=== PATIENT | male | born 1955 | race Caucasian/White ===

== ENCOUNTER 2024-12-13 09:07 | Emergency (ER) | payer MEDICARE, SELFPAY ==
[2024-12-13 09:16] VITALS: BP 157/88; PULSE 79; RESP 18; TEMP 36.8; O2SAT 98; BMI 30.1
--- NOTE | 2024-12-13 09:33 | XR_ITS ---
EXAMINATION: Ankle, left 3 views . Technique: Ankle AP, oblique, lateral 3 views Date and time of exam: December 13, 2024 0838 hours INDICATIONS: Patient fell today with injury to the ankle, ankle pain. FINDINGS: Minimal displacement fracture distal fibular shaft Comminuted fractures medial malleolus with 6 mm separation at the main fracture site Posterior malleolar fracture minimal offset No ankle dislocation IMPRESSION: Acute trimalleolar fractures
--- NOTE | 2024-12-13 09:33 | XR_ITS ---
Examination: Foot, left, 3 views Technique: AP, oblique, lateral views foot, 3 views Date and time of exam: December 13, 2024 at 0838 hours INDICATIONS: Patient fell today with injury to foot, foot pain FINDINGS: Please see the ankle report Bones of the foot appear intact IMPRESSION: Please see the ankle report
[2024-12-13] MEDS: HYDROcodone/APAP 5/325 TABLET 1 TAB PO (09:47)
[2024-12-13] MEDS: IBUPROFEN TAB 400 MG TABLET 800 MG PO (09:47)
--- NOTE | 2024-12-13 09:49 | PD.EDRME ---
Rapid Medical Screening Exam E Arrival date/time: 12/13/24 09:07 69-year-old male presents to the emergency department today for complaints of fall while mowing the lawn patient has significant swelling left ankle Chief Complaint: Fall Vital signs: Vital Signs Temperature 98.2 F 12/13/24 09:16 Pulse Rate 79 12/13/24 09:16 Respiratory Rate 18 12/13/24 09:16 Blood Pressure 157/88 H 12/13/24 09:16 Pulse Oximetry (%) 98 12/13/24 09:16 Oxygen Delivery Method Room Air 12/13/24 09:16
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
[2024-12-13 10:36] VITALS: BP 189/88; PULSE 72; RESP 16; TEMP 36.8; O2SAT 97
--- NOTE | 2024-12-13 11:05 | PC.NURSE ---
PATIENT PRESENTS TO THE ER WITH LEFT ANKLE INJURY / PAIN AFTER FALLING OFF 4 STAIRS YESTERDAY. ANKLE XRAY TODAY INDICATES TRIMALLEOLAR FRACTURE. STATES CURRENT PAIN 04/05. ER PROVIDER INFORMED.
[2024-12-13 12:01] VITALS: BP 163/80; PULSE 75; RESP 19; TEMP 36.6; O2SAT 96
[2024-12-13] MEDS: MORPHINE SULF INJ 10 MG/ML VIAL 5 MG IVP ×2 (12:08→15:05)
[2024-12-13] MEDS: ONDANSETRON INJ 2 MG/ML INJ 2 ML 4 MG IV (12:08)
[2024-12-13 13:59] VITALS: BP 147/84; PULSE 71; RESP 15; TEMP 36.9; O2SAT 96
== END 2024-12-13 14:00 | disposition home or self-care (01) ==
PROVIDERS: Emergency Provider Family Medicine; PCP Family Medicine
DX: S82.852A Displaced trimalleolar fracture of left lower leg, initial encounter for closed fracture (principal); W01.0XXA Fall on same level from slipping, tripping and stumbling without subsequent striking against object, initial encounter; Z95.5 Presence of coronary angioplasty implant and graft; I10 Essential (primary) hypertension
CPT/HCPCS: 29515; 73610; 73630; 96374; 96375; 99284; J2270; J2405; A9270

== ENCOUNTER → 2025-02-22 | Outpatient (CLI) | payer MEDICARE, MEDICAID, SELFPAY ==
--- NOTE | 2025-02-22 09:53 | XR_ITS ---
EXAMINATION: Ankle, right 3 views . Technique: Ankle AP, oblique, lateral 3 views Date and time of exam: February 22, 2025 1005 hours Comparison December 13, 2024 INDICATIONS: Acute fractures medial malleolus distal fibular shaft postop reduction internal fixation FINDINGS: Operative reduction internal fixation fractures medial malleolus and distal fibular shaft Significant healing fracture distal fibular shaft with stable satisfactory alignment Fracture line is still visible at the medial malleolus IMPRESSION: Recommend continued follow-up to document more complete healing fracture medial malleolus
== END | disposition home or self-care (01) ==
PROVIDERS: Referring Provider Orthopaedic Surgery; Visit Provider Orthopaedic Surgery
DX: S82.852D Displaced trimalleolar fracture of left lower leg, subsequent encounter for closed fracture with routine healing (principal); X58.XXXD Exposure to other specified factors, subsequent encounter
CPT/HCPCS: 73610

== ENCOUNTER → 2025-03-15 | Outpatient (BNVA) | payer MEDICARE, MEDICAID, SELFPAY | END | disposition home or self-care (01) | PROVIDERS: PCP Family Medicine; Referring Provider Family Medicine; Visit Provider Urology | DX: N40.1 Benign prostatic hyperplasia with lower urinary tract symptoms (principal); N13.8 Other obstructive and reflux uropathy; R39.15 Urgency of urination; I10 Essential (primary) hypertension; I25.10 Atherosclerotic heart disease of native coronary artery without angina pectoris; F17.210 Nicotine dependence, cigarettes, uncomplicated; J44.9 Chronic obstructive pulmonary disease, unspecified; K21.9 Gastro-esophageal reflux disease without esophagitis | CPT/HCPCS: 81003; 99212; G0463 ==

== ENCOUNTER → 2025-04-17 | Outpatient (CLI) | payer MEDICARE, MEDICAID, SELFPAY ==
--- NOTE | 2025-04-17 08:43 | XR_ITS ---
EXAMINATION: Ankle, left 3 views . Technique: Ankle AP, oblique, lateral 3 views Date and time of exam: April 17, 2025 0906 hours INDICATIONS: History ankle fracture 3 months ago FINDINGS: Significant healing fracture distal fibular shaft with stable and satisfactory alignment compared with February 22, 2025 Fracture line is still evident at the medial malleolus No ankle dislocation IMPRESSION: Recommend continued follow-up to document more complete healing of medial malleolar fracture
== END | disposition home or self-care (01) ==
PROVIDERS: PCP Family Medicine; Referring Provider Orthopaedic Surgery; Visit Provider Orthopaedic Surgery
DX: S82.52XA Displaced fracture of medial malleolus of left tibia, initial encounter for closed fracture (principal)
CPT/HCPCS: 73610

== ENCOUNTER → 2025-04-19 | Outpatient (BNVA) | payer MEDICARE, MEDICAID, SELFPAY | END | disposition home or self-care (01) | PROVIDERS: PCP Family Medicine; Referring Provider Family Medicine; Visit Provider Urology | DX: N40.1 Benign prostatic hyperplasia with lower urinary tract symptoms (principal); R39.12 Poor urinary stream; F17.210 Nicotine dependence, cigarettes, uncomplicated; I10 Essential (primary) hypertension; E78.00 Pure hypercholesterolemia, unspecified; I25.10 Atherosclerotic heart disease of native coronary artery without angina pectoris; J44.9 Chronic obstructive pulmonary disease, unspecified; K21.9 Gastro-esophageal reflux disease without esophagitis | CPT/HCPCS: 51741; 51798 ==

== ENCOUNTER → 2025-05-04 | Outpatient (BNVA) | payer MEDICARE, MEDICAID, SELFPAY | END | disposition home or self-care (01) | PROVIDERS: PCP Family Medicine; Referring Provider Family Medicine; Visit Provider Urology | DX: N40.1 Benign prostatic hyperplasia with lower urinary tract symptoms (principal); N13.8 Other obstructive and reflux uropathy; I10 Essential (primary) hypertension; E78.00 Pure hypercholesterolemia, unspecified; I25.10 Atherosclerotic heart disease of native coronary artery without angina pectoris; J44.9 Chronic obstructive pulmonary disease, unspecified; F17.210 Nicotine dependence, cigarettes, uncomplicated | CPT/HCPCS: 76872 ==

== ENCOUNTER 2025-06-05 16:10 | Inpatient (IN) | payer MEDICARE, MEDICAID, SELFPAY ==
[2025-06-05] VITALS (16 sets, daily range): BP systolic 143–198; BP diastolic 86–109; PULSE 80–112; RESP 10–18; TEMP 36.5–36.8; O2SAT 96–100; BMI 29.6
--- NOTE | 2025-06-05 16:30 | PD.EDADULT ---
ED General RME/HPI General Chief complaint: General Adult/Misc Complain Stated complaint: ADMIT FOR ESOPHAGEAL DILATION Time Seen by Provider: 06/05/25 16:22 Source: patient Arrival date/time: 06/05/25 16:10 69-year-old male with no known medical history presents to the emergency room with a chief complaint of a foreign body in the esophagus. Patient states he was sent by Dr. Haro for an EGD tomorrow morning. Mode of arrival: ambulatory Limitations: no limitations Related Data Home Medications ?Medication ?Instructions ?Recorded ?Confirmed clopidogrel 75 mg tablet 75 mg PO DAILY 05/09/21 05/04/25 tamsulosin 0.4 mg capsule 0.4 mg PO QHS 03/15/25 05/04/25 Previous Rx's ?Medication ?Instructions ?Recorded famotidine 20 mg tablet 20 mg PO BID #90 tabs 08/31/23 metoclopramide HCl 5 mg tablet 5 mg PO BID #90 tabs 08/31/23 (Reglan) pantoprazole 40 mg granules 40 mg PO BID #90 ea 08/31/23 delayed-release for susp in packet (Protonix) hydrocodone 10 mg-acetaminophen 1 tab PO Q8H PRN pain #20 tabs 12/13/24 325 mg tablet Allergies Allergy/AdvReac Type Severity Reaction Status Date / Time lisinopril AdvReac Intermediate Gastrointestinal Verified 06/05/25 16:14 Upset Review of Systems Review of Systems Systems Reviewed: All systems reviewed, normal except as documented Constitutional Constitutional: Reports system reviewed and no additional complaints, except as documented, Denies fatigue, Denies fever(s), Denies headache(s) and Denies weakness Eyes Eyes: Reports system reviewed and no additional complaints, except as documented, Denies blurry vision and Denies change in vision ENT Ears, Nose, Mouth, and Throat: Reports system reviewed and no additional complaints, except as documented, Denies otalgia, Denies headache(s), Denies nasal congestion, Denies throat swelling and Denies vertigo Cardiovascular Cardiovascular: Reports system reviewed and no additional complaints, except as documented, Denies chest pain, Denies dyspnea and Denies dyspnea on exertion Respiratory Respiratory: Reports system reviewed and no additional complaints, except as documented, Denies chest congestion, Denies cough, Denies dyspnea, Denies dyspnea on exertion and Denies wheezing Gastrointestinal Gastrointestinal: Reports system reviewed and no additional complaints, except as documented, Denies abdominal pain, Denies cramping, Denies nausea and Denies vomiting Genitourinary Genitourinary: Reports system reviewed and no additional complaints, except as documented, Denies dysuria and Denies hematuria Musculoskeletal Musculoskeletal: Reports system reviewed and no additional complaints, except as documented and Denies back pain Integumentary/Breasts Skin/Breast: Reports system reviewed and no additional complaints, except as documented and Denies wounds Neurologic Neurologic: Reports system reviewed and no additional complaints, except as documented, Denies confusion, Denies headache(s), Denies lack of coordination, Denies vertigo and Denies weakness Psychiatric Psychiatric: Reports system reviewed and no additional complaints, except as documented, Denies anxiety, Denies confusion, Denies depression, Denies paranoia, Denies suicidal ideation and Denies tactile hallucinations Endocrine Endocrine: Reports system reviewed and no additional complaints, except as documented and Denies fatigue Hematologic/Lymphatic Hematologic/Lymphatic: Reports system reviewed and no additional complaints, except as documented and Denies lymphadenopathy Allergic/Immunologic Allergic/Immunologic: Reports system reviewed and no additional complaints, except as documented, Denies throat swelling, Denies urticaria and Denies wheezing ED Exam General Limitations: Present no limitations General appearance: Present alert and in no apparent distress Head Head exam: Present atraumatic Eye Eye exam: Present normal appearance, PERRL and EOMI ENT ENT exam: Present normal exam, normal oropharynx and mucous membranes moist Neck Neck exam: Present normal inspection, full ROM and trachea midline Chest Chest inspection: Present normal inspection and symmetric chest wall rise Respiratory Respiratory exam: Present normal lung sounds bilaterally Cardiovascular Cardiovascular exam: Present regular rate, normal rhythm and normal heart sounds Abdominal Exam Abdominal exam: Present soft and normal bowel sounds Extremities Exam Extremities exam: Present normal inspection and full ROM Back Exam Back exam: Present normal inspection and full ROM Neurological Exam Neurological exam: Present alert, oriented X3 and CN II-XII intact Psychiatric Psychiatric exam: Present normal affect and normal mood Skin Skin exam: Present warm, dry, intact and normal color Course Quality Measures none Orders Category Date Time Status COVID-19 Screening Questionnaire NOW Care 06/05/25 16:29 Active Decision to Admit X1 Care 06/05/25 16:29 Active NPO NOW Care 06/05/25 16:29 Active Consult to Gastroenterology Stat Cons 06/05/25 16:29 Ordered Diet NPO (NOW) Diet 06/05/25 16:29 Active CBC Stat Lab 06/05/25 16:29 Ordered CMP [Comprehensive Metabolic Panel] Stat Lab 06/05/25 16:29 Ordered Vital Signs Vital signs: Vital Signs Temperature 98.1 F 06/05/25 16:22 Pulse Rate 99 06/05/25 16:22 Respiratory Rate 16 06/05/25 16:22 Blood Pressure 143/89 H 06/05/25 16:22 Pulse Oximetry (%) 96 06/05/25 16:22 Oxygen Delivery Method Room Air 06/05/25 16:22 Discharge Plan Plan Patient Disposition: Admit Acute Care w/in Hospital Discharge Disposition comment: Stable Prescriptions/Referrals Prescriptions/Med Rec: No Action tamsulosin 0.4 mg capsule 0.4 mg PO QHS clopidogrel 75 mg tablet 75 mg PO DAILY pantoprazole [Protonix] [address] For Susp In Packet 40 mg PO BID Qty: 90 0RF famotidine 20 mg Tablet 20 mg PO BID Qty: 90 0RF metoclopramide HCl [Reglan] 5 mg Tablet 5 mg PO BID Qty: 90 0RF hydrocodone-acetaminophen 10-325 mg tablet 1 tab PO Q8H MDD 4 tablets PRN (Reason: pain) Qty: 20 0RF Problem List Clinical Impression: Esophageal foreign body Patient/Caregiver Discharge Instructions Print Language: Haitian Stand Alone Forms: [employer] Award Info., Patient Portal Info Letter MDM Narrative MDM hospital course: 69-year-old male with no known medical history presents to the emergency room with a chief complaint of a foreign body in the esophagus. Patient states he was sent by Dr. Haro for an EGD tomorrow morning. Patient is hemodynamically stable and in no apparent distress. Patient denies any respiratory distress. Patient has no shortness of breath Lung sounds are clear bilaterally there is no wheezing or stridor. There is no tongue swelling or lip swelling I spoke to Dr. Haro the composer teaching artist on-call and he will admit the patient for an EGD tomorrow to remove the foreign body in the esophagus. Per patient the foreign body that is stuck in his esophagus is a piece of meat I spoke to the admitting team and they will admit the patient for an EGD tomorrow. Clinical Information Provided by patient Medical Records Reviewed None Meds/Rx Considered, not Ordered None Labs/Rad/Tests considered, not Ordered None Chronic Illness/Social Conditions which may negatively complicate care or outcome(s)-explain: None or not applicable EKG EKG not done Lab Interpretation Labs: none Imaging Imaging interpretation: none Medication Administration(s) none Diagnosis Differential diagnosis: Esophageal foreign body Most likely dx, and/or detailed dx discussion: Esophageal foreign body Dispositon Disposition: Admit
[2025-06-05 16:58] LABS: Basophils # (Auto) 0.1 Thou/mm3 (0.0-0.2); Basophils % (Auto) 1 % (0-2.5); Eosinophils # (Auto) 0.1 Thou/mm3 (0.0-0.5); Eosinophils % (Auto) 2 % (0-10); Hematocrit 47.4 % (41.0-53.0); Hemoglobin 15.2 g/dL (13.5-16.0); Immature Granulocytes Auto 0.01 Thou/mm3 (0.00-0.00); Lymphocytes # (Auto) 1.2 Thou/mm3 (1.0-4.8); Lymphocytes % (Auto) 20 % (10-50); Mean Corpuscular HGB Conc 32.1 g/dl (31.0-37.0); Mean Corpuscular Hemoglobin 27.3 pg (25.0-35.0); Mean Corpuscular Volume 85 fL (80-100); Monocytes # (Auto) 0.6 Thou/mm3 (0.0-0.8); Monocytes % (Auto) 11 % (0-12); Neutrophils # (Auto) 4.0 Thou/mm3 (1.8-7.7); Neutrophils % (Auto) 66 % (37-80); Nucleated Red Blood Cell # 0.00 Thou/mm3 (0.00-0.00); Nucleated Red Blood Cell % 0 /100 WBC (0); Platelet Count 241 Thou/mm3 (140-440); RDW Standard Deviation 45.3 fL (35.1-43.9); Red Blood Count 5.56 Miln/mm3 (4.50-5.90); White Blood Count 6.1 Thou/mm3 (3.8-10.6)
--- NOTE | 2025-06-05 16:59 | XR_ITS ---
Examination: AP chest single view Technique: AP sitting portable chest single view Date and time: June 05, 2025, 1714 hrs. Indications: Patient swallowed foreign body glass likely chest pain. Findings: Median sternotomy wires. Mild prominence left ventricle. Poor definition of cardiac contour. No opaque foreign body. Aortic valve replacement satisfactory position Impression: No opaque foreign body. Recommend lateral chest view follow-up to assess and exclude possible parenchymal disease in the lingular segment
--- NOTE | 2025-06-05 17:06 | PD.RESHP ---
Documentation for date of: 06/05/25 [facility] History of Present Illness Chief complaint: Dysphagia History of present illness: 69-year-old male with past medical history of coronary artery disease, valvular heart disease status post CABG, hypertension, esophageal stricture and ulceration, BPH, skin cancer presenting to the ED on 06/05 after he started experiencing worsening dysphagia and has a piece of chicken stuck in his esophagus. Patient states that he was going out to dinner with his yesterday and had chicken; however, unfortunately the chicken has been stuck in his throat and he has not been able to eat or drink anything since the incident. Patient states that he regurgitates anything that he tries to swallow. Dysphagia has been ongoing for several years, patient states 6 to 7 years, and has had multiple dilations via endoscopy in the past. 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 Patient has extensive cardiac history and follows up with rod greaser Dr. Blakely in [place]. Medical history: As stated above Surgical history: CABG, left foot surgery and cataract removal, skin cancer biopsies and excision Allergies: Lisinopril causes gastrointestinal issues Home medications: Pending med rec Family history: Noncontributory Social history: Patient lives at home with his , able to do his ADLs, greater than [id number] history, denies alcohol or illicit drug use ROS: All 12 systems assessed and the patient denies unless otherwise stated in HPI. Patient was sent to the ED by Dr. Haro, gastroenterology was already excepted the patient for endoscopy. No laboratory or imaging studies were completed in the ED prior to admission. Patient will be admitted for dysphagia secondary to foreign object ingestion and retention with scheduled endoscopy for removal of foreign object and possible dilation. Exam Vital Signs Temp Pulse Resp BP Pulse Ox O2 Del Method 98.1 F 99 16 143/89 H 96 Room Air 06/05/25 16:22 06/05/25 16:22 06/05/25 16:22 06/05/25 16:22 06/05/25 16:22 06/05/25 16:22 Narrative Exam Physical Exam: GENERAL: Awake, answering questions appropriately, appears stated age HEENT: NC/AT. Moist mucosa. PERRLA/EOMI. CARDIO: Heart RRR, no obvious murmurs, no JVD. PULM: No coughing or visible SOB. Lungs CTA B/L. GI: Abdomen soft, NT/ND, +BS. SKIN/MSK/EXT: No wounds/discoloration/rashes/edema/amputations. +Pedal pulses present B/L. NEURO: Oriented x3, Moves extremities x4, no focal neurologic deficits noted. Results: Labs 06/05/25 16:37 06/05/25 16:37 Quality Measures Quality Measures none Advance care planning discussed with:: patient Medications Home Medications and Allergies Home Medications ?Medication ?Instructions ?Recorded ?Confirmed ?Type clopidogrel 75 mg tablet 75 mg PO DAILY 05/09/21 05/04/25 History tamsulosin 0.4 mg capsule 0.4 mg PO QHS 03/15/25 05/04/25 History Allergies Allergy/AdvReac Type Severity Reaction Status Date / Time lisinopril AdvReac Intermediate Gastrointestinal Verified 06/05/25 16:14 Upset Visit Medications Acetaminophen (Acetaminophen 325 Mg Tablet) 650 mg PO Q6H PRN PRN Reason: PAIN SCALE 1-3 (mild Stop: 07/05/25 16:59 Aspirin (Aspirin Ec 81 Mg Tabec) 81 mg PO QDAY [facility] Stop: 07/06/25 08:59 Carvedilol (Carvedilol 3.125 Mg Tablet) 6.25 mg PO BIDWM SAMRA Stop: 07/05/25 17:29 Clopidogrel Bisulfate (Clopidogrel Bisulfate 75 Mg Tablet) 75 mg PO QDAY SAMRA Stop: 07/06/25 08:59 Heparin Sodium (Porcine) (Heparin Sod Inj 5000 Unit/Ml Vial) 5,000 unit SC Q12HR SAMRA Stop: 06/19/25 20:59 Ondansetron HCl (Ondansetron Inj 2 Mg/Ml Inj 2 Ml) 4 mg IVP Q6H PRN; Protocol PRN Reason: NAUSEA OR VOMITING Stop: 07/05/25 16:59 Assessment & Plan Plan 69-year-old male with past medical history of coronary artery disease, valvular heart disease status post CABG, hypertension, esophageal stricture and ulceration, BPH, skin cancer presenting to the ED on 06/05 after he started experiencing worsening dysphagia and has a piece of chicken stuck in his esophagus will be admitted for dysphagia secondary to foreign object ingestion and retention with scheduled endoscopy for removal of foreign object and possible dilation. #Dysphagia #Foreign body in esophagus #Esophageal stricture and ulceration As noted in HPI, patient had an episode of dysphagia, ongoing medical problem for about 7 years had multiple dilations Per HPI, patient had a piece of chicken yesterday which got stuck in his throat - sent to ED by gastroenterology for EGD On examination, patient denies having any concerning symptoms such as shortness of breath but states that he gets regurgitation with any type of congestion/swallowing No pertinent imaging or laboratory results ordered in the ED Plan: GI consulted, appreciate recommendations Tentatively scheduled EGD N.p.o. Chest x-ray ordered for possible visualization of any other etiology #Coronary artery disease status post CABG #Aortic valve disease status post valve replacement #Hypertension Patient has extensive past medical history of cardiac issues; follows up with Dr. Blakely cardiology in [place] Patient had CABG for coronary artery disease along with aortic valve insufficiency/stenosis? Patient is on Plavix and aspirin along with statin and carvedilol Plan: Ordered troponin and BNP to assess for any cardiac etiology of chest discomfort Restarted home medications #BPH Chronic medical condition Patient on home tamsulosin 0.4 mg p.o. at bedtime Plan: Restart home medication #Skin cancer Per who is at bedside, patient has been seeing a wet primer powder blender for skin cancer findings on anterior chest wall Patient has an appointment on 06/12 for biopsy/excision Plan: Follow-up with dermatology appointment once discharged Health Maintenance: Lines: PIV Diet: N.p.o. pending EGD Bowel: Not needed GI prophylaxis: Not needed DVT prophylaxis: Heparin subcu Dispo: EGD for foreign object removal, dilation Code: Full Patient seen and assessed with attending Dr. Jay Michael DO PGY-2 Internal Medicine - GME Attending Provider Attestation/Addendum I attest that I was physically present for the evaluation, physical examination, lab and imaging review of the patient with the residents. I discussed the case with the residents and agree with the findings and plans of care as documented above. After examination of the patient and review of the clinical data I feel that this patient needs admission to the hospital for further treatment/evaluation. Patient is a 69 years old male with past medical history of CAD, valvular heart disease status post CABG, hypertension, esophageal stricture and ulceration, BPH, skin cancer who presented to the ED with complaint of piece of chicken stuck in his esophagus. Patient has been having dysphagia for past 6 to 7 years with multiple endoscopies and dilation. He follows gastroenterology outpatient. Patient went out to dinner with his yesterday and had chicken which got stuck in his throat following which he has not been able to eat or drink anything, whenever he tries he will have regurgitation. Patient visited his receiving inspector today, who recommended visiting to the ED. In the ED, vital signs are stable, patient does not appear to be in no acute distress, states that he has discomfort on his chest but denies any other symptoms. Lab results are stable. We will admit the patient for management of possible foreign body in esophagus, dysphagia in setting of history of esophageal stricture and ulceration. We will keep him n.p.o., gastroenterology has been consulted by ED. We will also obtain chest x-ray troponin and BNP to rule out any other causes of chest discomfort. We will continue his home medication for CAD, BPH. Mouna Thompson MD
[2025-06-05 17:11] LABS: Alanine Aminotransferase 15 U/L (10-49); Albumin, Serum 4.5 gm/dL (3.4-4.8); Albumin/Globulin Ratio 1.7 (1.2-2.2); Alkaline Phosphatase 84 U/L (46-116); Anion Gap 13 (7-16); Aspartate Amino Transferase 20 U/L (0-34); BUN/Creatinine Ratio 6 Ratio (12-20); Bilirubin,Total 0.5 mg/dL (0.3-1.2); Blood Urea Nitrogen 6 mg/dL (9-23); Calcium 9.8 mg/dL (8.3-10.6); Calcium (Corrected) 9.8 mg/dL (8.5-10.1); Carbon Dioxide 25.6 mMol/L (20.0-31.0); Chloride 104 mMol/L (98-107); Creatinine (Component) 1.0 mg/dL (0.6-1.3); Estimated Creatinine Clearance 77.6 mL/min (>60); Globulin 2.7 gm/dL (2.3-3.5); Glucose 88 mg/dL (74-106); Osmolality,Calculated 281 (275-295); Potassium 4.2 mMol/L (3.4-5.1); Sodium 143 mMol/L (136-145); Total Protein 7.2 gm/dL (5.7-8.2); eGFR > 60 See Note
[2025-06-05 17:49] LABS: B-Type Natriuretic Peptide 29 pg/mL (0-100)
[2025-06-05 18:48] LABS: Troponin I < 0.020 ng/mL (0.0-0.045)
--- NOTE | 2025-06-05 22:01 | PD.IMCONS ---
HPI Data of Consult Requesting Physician: Mouna Thompson MD Primary Care Provider: Kennedy Kelly MD Consult Narrative Reason for consult: Dysphagia foreign body obstruction esophagus History of present illness: 69 years old male was sent to the emergency room when I saw him in the office for dysphagia and a piece of foreign body stuck in the esophagus after a chicken dinner last night Patient has been spitting up saliva He has a history of coronary artery status post CABG valvular heart disease esophageal ulcer n.p.o. with endoscopic dilatation cc:: cc: Mouna Thompson MD Review of Systems Review of Systems Systems Reviewed: All systems reviewed, normal except as documented Past Medical History Surgical History OTHER SURGICAL HX: As in the history of present illness Meds Home Medications and Allergies Home Medications ?Medication ?Instructions ?Recorded ?Confirmed ?Type clopidogrel 75 mg tablet 75 mg PO DAILY 05/09/21 05/04/25 History tamsulosin 0.4 mg capsule 0.4 mg PO QHS 03/15/25 05/04/25 History Allergies Allergy/AdvReac Type Severity Reaction Status Date / Time lisinopril AdvReac Intermediate Gastrointestinal Verified 06/05/25 16:14 Upset Exam Vital Signs Temp Pulse Resp BP Pulse Ox O2 Del Method O2 Flow Rate 98.2 F 93 18 161/92 H 96 Room Air 3 06/05/25 18:43 06/05/25 21:56 06/05/25 21:56 06/05/25 21:56 06/05/25 21:56 06/05/25 18:43 06/05/25 21:45 Constitutional Comments: In distress Routine Respiratory Exam Comments: Normal to auscultation Routine Abdominal Exam Comments: Soft nontender Results Labs 06/05/25 16:37 06/05/25 16:37 Labs: Short CBC 06/05/25 Range/Units 16:37 WBC 6.1 (3.8-10.6) Thou/mm3 Hgb 15.2 (13.5-16.0) g/dL Hct 47.4 (41.0-53.0) % Plt Count 241 (140-440) Thou/mm3 BMP 06/05/25 16:37 Sodium 143 Potassium 4.2 Chloride 104 Carbon Dioxide 25.6 BUN 6 L Creatinine 1.0 Glucose 88 Calcium 9.8 Cardiac Enzymes 06/05/25 Range/Units 16:37 Troponin I < 0.020 (0.0-0.045) ng/mL Liver Function 06/05/25 Range/Units 16:37 Total Bilirubin 0.5 (0.3-1.2) mg/dL AST 20 (0-34) U/L ALT 15 (10-49) U/L Alkaline Phosphatase 84 (46-116) U/L Albumin 4.5 (3.4-4.8) gm/dL Assessment and Plan Additional Assessment & Plan Additional Plan: Foreign body obstruction esophagus Plan Consent obtained for fiberoptic esophagogastroduodenoscopy with possible therapeutic intervention for removal of the esophageal foreign body under intravenous moderate sedation Thank you very much for the opportunity to participate in the care of this patient
[2025-06-05] MEDS: PIPER/TAZO 3.375 GM PREMIX 3.375 GM/50 ML BAG IV (22:23)
[2025-06-06] VITALS (8 sets, daily range): BP systolic 113–145; BP diastolic 53–81; PULSE 68–88; RESP 14–19; TEMP 36.1–36.7; O2SAT 95–98
[2025-06-06] MEDS: PIPER/TAZO 3.375 GM PREMIX 3.375 GM/50 ML BAG IV ×3 (05:18→21:24)
[2025-06-06 05:58] LABS: Basophils # (Auto) 0.1 Thou/mm3 (0.0-0.2); Basophils % (Auto) 1 % (0-2.5); Eosinophils # (Auto) 0.1 Thou/mm3 (0.0-0.5); Eosinophils % (Auto) 2 % (0-10); Hematocrit 45.4 % (41.0-53.0); Hemoglobin 14.3 g/dL (13.5-16.0); Immature Granulocytes Auto 0.02 Thou/mm3 (0.00-0.00); Lymphocytes # (Auto) 1.2 Thou/mm3 (1.0-4.8); Lymphocytes % (Auto) 18 % (10-50); Mean Corpuscular HGB Conc 31.5 g/dl (31.0-37.0); Mean Corpuscular Hemoglobin 27.3 pg (25.0-35.0); Mean Corpuscular Volume 87 fL (80-100); Monocytes # (Auto) 0.8 Thou/mm3 (0.0-0.8); Monocytes % (Auto) 11 % (0-12); Neutrophils # (Auto) 4.8 Thou/mm3 (1.8-7.7); Neutrophils % (Auto) 69 % (37-80); Nucleated Red Blood Cell # 0.00 Thou/mm3 (0.00-0.00); Nucleated Red Blood Cell % 0 /100 WBC (0); Platelet Count 202 Thou/mm3 (140-440); RDW Standard Deviation 46.4 fL (35.1-43.9); Red Blood Count 5.23 Miln/mm3 (4.50-5.90); White Blood Count 7.0 Thou/mm3 (3.8-10.6)
[2025-06-06 06:20] LABS: Alanine Aminotransferase 11 U/L (10-49); Albumin, Serum 4.2 gm/dL (3.4-4.8); Albumin/Globulin Ratio 1.9 (1.2-2.2); Alkaline Phosphatase 74 U/L (46-116); Anion Gap 10 (7-16); Aspartate Amino Transferase 15 U/L (0-34); BUN/Creatinine Ratio 8 Ratio (12-20); Bilirubin,Total 0.6 mg/dL (0.3-1.2); Blood Urea Nitrogen 8 mg/dL (9-23); Calcium 9.4 mg/dL (8.3-10.6); Calcium (Corrected) 9.4 mg/dL (8.5-10.1); Carbon Dioxide 27.6 mMol/L (20.0-31.0); Chloride 105 mMol/L (98-107); Creatinine (Component) 1.0 mg/dL (0.6-1.3); Estimated Creatinine Clearance 76.7 mL/min (>60); Globulin 2.2 gm/dL (2.3-3.5); Glucose 84 mg/dL (74-106); Osmolality,Calculated 282 (275-295); Potassium 3.9 mMol/L (3.4-5.1); Sodium 143 mMol/L (136-145); Total Protein 6.4 gm/dL (5.7-8.2); eGFR > 60 See Note
--- NOTE | 2025-06-06 08:12 | XR_ITS ---
Examination: AP chest single view Technique one AP portable semiupright chest single view Date and time: June 06, 2025 0823 hours, comparison 06/05/2025 INDICATIONS: History foreign object in the esophagus FINDINGS: Aortic valve replacement Mild prominence left ventricle Probable scarring in the lingular segment No opaque foreign body in distribution of the esophagus IMPRESSION: No opaque foreign body
[2025-06-06] MEDS: CLOPIDOGREL BISULFATE 75 MG TABLET PO (08:16)
[2025-06-06] MEDS: ASPIRIN EC 81 MG TABEC PO (08:16)
[2025-06-06] MEDS: HEPARIN SOD INJ 5000 UNIT/ML VIAL SC ×2 (08:18→21:23)
[2025-06-06] MEDS: MG HYD/AL HYD/SIME (Maalox Reg) SUSP 30 ML UDC PO (09:38)
--- NOTE | 2025-06-06 10:34 | EKG_ITS ---
[facility] Test Date: 2025-06-06 Pat Name: MERCY SIMENTAL Department: Room: S274A Gender: Male Senior Windows Administrator: DEL : 1955 Requested By: Chaitanya Strickland Order Number: [id number] Reading MD: Chaitanya Strickland Measurements Intervals Miller Rate: 72 P: 75 NJ: 222 QRS: -23 QRSD: 158 T: 104 QT: 431 QTc: 473 Interpretive Statements SINUS RHYTHM WITH FIRST DEGREE AV BLOCK POSSIBLE LEFT ATRIAL ENLARGEMENT BORDERLINE LEFT AXIS DEVIATION INTRAVENTRICULAR CONDUCTION DELAY Compared to ECG 02/12/2023 08:20:16 T-wave abnormality no longer present /store/S0/[id number].pdf
[2025-06-06] MEDS: RINGERS LACTATED 500 ML 500 ML 125 ML IV (10:55)
[2025-06-06 11:04] LABS: Troponin I < 0.020 ng/mL (0.0-0.045)
--- NOTE | 2025-06-06 11:07 | PC.SS ---
Update: Patient is NPO. Dr. Haro is consulting.
--- NOTE | 2025-06-06 13:00 | PC.SS ---
ENVIRONMENT COORDINATOR conducted bedside contact with the patient conduct initial assessment and to discuss discharge planning.? Patient confirmed demographic information.? Patient resides at home with spouse, Aleksandra Rivero .? Patient reports employment at [employer].? Patient does not utilize DME to assist with ambulation.? Patient does not utilize home oxygen.? Patient is able to complete ADL?s independently.? Patient identified spouse, Aleksandra Rivero; as surrogate medical decision maker. ?Patient?s PCP is Dr. Kelly MICHELE.? Patient?s hvac commercial salesperson is Melissa Dent.? Patient?s urologist is Dr. Galloway.? Patient utilizes [employer] for medication services.? Family will provide transportation on behalf of the patient.? No further discharge needs identified by the patient.? No further intervention required at this time, psych social worker will be available to address any further concerns.? Next of Kin: Aleksandra Rivero D/C Plan: Home
--- NOTE | 2025-06-06 14:37 | ESPR_ITS ---
<Statement entered by Filippo Michael MD - 06/06/25 15:55> Patient seen and assessed in hospital bed status post EGD with gastroenterology, patient's foreign/food bolus was removed during procedure. Initially patient was strictly nothing by mouth; however, he is currently on clear liquid diet and is improving. Upon assessing patient's EKG, there is some new right ventricular hypertrophic changes noted, recommendation is that the patient follow-up with his post splitter. Echocardiogram is also ordered and we will follow-up on the read. Patient otherwise remained stable and to be are planning on discharge within the next 24 hours. I have personally seen and examined the patient. I agree with the resident's assessment and plan as documented below. Filippo Michael DO PGY-2 Internal Medicine - GME Documentation for date of: 06/06/25 Subjective Subjective Interval history: No acute events overnight. No complaints this morning. On telemetry, noted new ST elevation. Troponin was negative. Patient denied any chest pain or palpitations. Unlikely NSTEMI given lack of symptoms, of note patient has extensive cardiac history, recommended patient to follow-up with post splitter Dr. Blakely in [place]. Will continue IV Zosyn per GI Dr. Haro recommendations, will likely need antibiotics outpatient. Restarted clear liquid diet. Anticipate discharge home tomorrow. Exam Vital Signs Temp Pulse Resp BP Pulse Ox O2 Del Method O2 Flow Rate 97.7 F 82 15 130/68 95 Room Air 3 06/06/25 12:00 06/06/25 12:06/06/25 12:06/06/25 12:06/06/25 12:06/06/25 12:06/05/25 21:45 Narrative Exam Physical Exam General: Awake and in no acute distress. Conversational and non-toxic appearing. HEENT: Normocephalic, atraumatic, mucous membranes moist. Heart: Regular rate and rhythm, normal S1 and S2, no murmurs. Lungs: Clear to auscultation with no wheezing or crackles. Abdomen: Soft, nondistended, nontender, positive bowel sounds. No guarding or rebound tenderness. Neurologic: Alert and oriented x3, no gross neurological deficit, and patient able to move all 4 extremities. Extremities: No edema. Skin: No rash or ecchymoses. Objective Labs 06/06/25 05:17 06/06/25 05:17 Labs: Laboratory Results - last 24 hr 06/05/25 06/06/25 16:37 05:17 WBC 6.1 7.0 RBC 5.56 5.23 Hgb 15.2 14.3 Hct 47.4 45.4 MCV 85 87 MCH 27.3 27.3 MCHC 32.1 31.5 RDW Std Deviation 45.3 H 46.4 H Plt Count 241 202 D Neut % (Auto) 66 69 Lymph % (Auto) 20 18 Morrison % (Auto) 11 11 Eos % (Auto) 2 2 Baso % (Auto) 1 1 Neut # (Auto) 4.0 4.8 Lymph # (Auto) 1.2 1.2 Morrison # (Auto) 0.6 0.8 Eos # (Auto) 0.1 0.1 Baso # (Auto) 0.1 0.1 Immature Gran # (Auto) 0.01 H 0.02 H Absolute Nucleated RBC 0.00 0.00 Immature Gran % 0 0 Nucleated RBC % 0 0 Sodium 143 143 Potassium 4.2 3.9 Chloride 104 105 Carbon Dioxide 25.6 27.6 Anion Gap 13 10 BUN 6 L 8 L Creatinine 1.0 1.0 Estim Creat Clear Calc 77.6 76.7 eGFR > 60 > 60 BUN/Creatinine Ratio 6 L 8 L Glucose 88 84 Calculated Osmolality 281 282 Calcium 9.8 9.4 Corrected Calcium 9.8 9.4 Total Bilirubin 0.5 0.6 AST 20 15 ALT 15 11 Alkaline Phosphatase 84 74 Troponin I < 0.020 < 0.020 B-Natriuretic Peptide 29 Total Protein 7.2 6.4 Albumin 4.5 4.2 Globulin 2.7 2.2 L Albumin/Globulin Ratio 1.7 1.9 Quality Measures Quality Measures none Advance care planning discussed with:: patient Assessment & Plan Assessment Current Active Medications: Generic Name Dose Route Start Last Admin Trade Name Freq PRN Reason Stop Dose Admin Acetaminophen 650 mg 06/05/25 17:00 Acetaminophen 325 Mg Tablet PO 07/05/25 16:59 Q6H PRN PAIN SCALE 1-3 (mild Carvedilol 6.25 mg 06/05/25 17:30 06/06/25 08:15 Carvedilol 3.125 Mg Tablet PO 07/05/25 17:29 6.25 mg BIDWM SAMRA Administration Clopidogrel Bisulfate 75 mg 06/06/25 09:00 06/06/25 08:16 Clopidogrel Bisulfate 75 Mg Tablet PO 07/06/25 08:59 75 mg QDAY SAMRA Administration Heparin Sodium (Porcine) 5,000 unit 06/05/25 21:00 06/06/25 08:18 Heparin Sod Inj 5000 Unit/Ml Vial SC 06/19/25 20:59 5,000 unit Q12HR SAMRA Administration Piperacillin/Tazobactam/Dextrose 3.375 gm in 50 mls @ 12.5 mls/hr 06/05/25 22:00 06/06/25 13:54 Zosyn IV 06/12/25 21:59 12.5 mls/hr Q8HR SAMRA Administration Protocol Lactated Ringer's 500 mls @ 125 mls/hr 06/06/25 10:38 06/06/25 10:55 Lactated Ringers IV 07/06/25 10:37 125 mls/hr .Q4H SAMRA Administration Ondansetron HCl 4 mg 06/05/25 17:00 Ondansetron Inj 2 Mg/Ml Inj 2 Ml IVP 07/05/25 16:59 Q6H PRN NAUSEA OR VOMITING Protocol Tamsulosin HCl 0.4 mg 06/05/25 21:00 06/05/25 21:18 Tamsulosin Hcl 0.4 Mg Capsule PO 07/05/25 20:59 Not Given HS SAMRA Plan 69-year-old male with past medical history of coronary artery disease, valvular heart disease status post CABG, hypertension, esophageal stricture and ulceration, BPH, skin cancer presenting to the ED on 06/05 after he started experiencing worsening dysphagia and has a piece of chicken stuck in his esophagus will be admitted for dysphagia secondary to foreign object ingestion and retention with scheduled endoscopy for removal of foreign object and possible dilation. #New ST elevation #Coronary artery disease status post CABG #Aortic valve disease status post valve replacement #Hypertension Cardiac history as above. Follows up with Dr. Blakely in [place] every 6 months. Takes Plavix, baby aspirin, carvedilol 6.25 twice daily, and rosuvastatin 40 mg daily at home. Noted new ST elevation on telemetry. EKG shows ST elevations in V1?V5, however patient was asymptomatic, denied any chest pain or palpitations. Troponin and BNP within normal limits. Unlikely NSTEMI. Plan: ?Restart home dose Plavix, baby aspirin, carvedilol, rosuvastatin ?CTM for new chest pain ?Recommend outpatient follow-up with post splitter soon after discharge #Dysphagia #Foreign body in esophagus #Esophageal stricture and ulceration As noted in HPI, patient had an episode of dysphagia, ongoing medical problem for about 7 years had multiple dilations Per HPI, patient had a piece of chicken yesterday which got stuck in his throat - sent to ED by gastroenterology for EGD On examination, patient denies having any concerning symptoms such as shortness of breath but states that he gets regurgitation with any type of congestion/swallowing No pertinent imaging or laboratory results ordered in the ED S/p EGD with removal of foreign body in esophagus. Noted severe gastritis. CXR postprocedure confirms successful removal of foreign body. Plan: ?GI Dr. Haro consulted, appreciate recommendations ?IV Zosyn 3.375 every 6 hours ?Started on clear liquid diet #BPH Chronic. Takes tamsulosin 0.4 mg p.o. at bedtime at home Plan: - Restart home dose tamsulosin #Skin cancer Follows with virtualization consultant for skin cancer findings on anterior chest wall. Has appointment on 06/12 for biopsy/excision. - Follow-up outpatient Health Maintenance Disposition: MedSurg for EGD DVT prophylaxis: Heparin GI prophylaxis: None needed Diet: Clear liquid diet CODE STATUS: Full Patient plan of care was discussed with the resident, Dr. Marley, and attending physician, Dr. Paul. Graciela Schwarz, PGY-1 Attending Provider Attestation/Addendum I attest that I was physically present for the evaluation, physical examination, lab and imaging review of the patient with the residents. I discussed the case with the residents and agree with the findings and plans of care as documented above. Mouna Thompson MD
--- NOTE | 2025-06-06 15:25 | ECHO_ITS ---
Transthoracic Echo Report Ht (in): 69 Wt (lb): 200 Exam Location: Echo Lab Status: Inpatient Coffee Bar Attendant: Palma Marsh Indications: Procedure Performed: BP: 122 / 72 HR: 88 MEASUREMENTS (Male / Female) Normal Values 2D ECHO LV Diastolic Diameter PLAX 4.8 cm 4.2 - 5.9 / 3.9 - 5.3 cm LV Systolic Diameter PLAX 2.9 cm IVS Diastolic Thickness 0.8 cm 0.6 - 1.0 / 0.6 - 0.9 cm LVPW Diastolic Thickness 0.9 cm 0.6 - 1.0 / 0.6 - 0.9 cm LV Relative Wall Thickness 0.4 LVOT Diameter 2.0 cm LA Volume Index 28.1 cm?/m? 16 - 28 cm?/m? Ascending Aorta Diameter 2.8 cm M-MODE AV Cusp Separation MM 1.1 cm DOPPLER AV Peak Velocity 267.0 cm/s AV Peak Gradient 28.5 mmHg AV Mean Gradient 17.0 mmHg AV Velocity Time Integral 40.7 cm LVOT Peak Velocity 156.0 cm/s LVOT Peak Gradient 9.7 mmHg LVOT Velocity Time Integral 29.4 cm LVOT Cardiac Index 3826.2 cm?/min?m? AV Area Cont Eq vti 2.3 cm? AV Area Cont Eq pk 1.8 cm? MV Peak Velocity 105.0 cm/s MV Peak Gradient 4.4 mmHg MV Mean Velocity 50.9 cm/s MV Mean Gradient 1.0 mmHg MV Area PHT 6.3 cm? Mitral E Point Velocity 92.6 cm/s LV E' Septal Velocity 3.0 cm/s Mitral E to LV E' Septal Ratio 30.4 TR Peak Velocity 194.0 cm/s TR Peak Gradient 15.1 mmHg PV Peak Velocity 205.0 cm/s PV Peak Gradient 16.8 mmHg FINDINGS Left Ventricle Left ventricle is normal in size with evidence of asymmetric septal hypertrophy septal thickness is 24 mm with hypertrophic cardiomyopathy. Normal left ventricle wall motion ejection fraction of 65 to 70%. Right Ventricle The right ventricle is normal in size and systolic function. The estimated right ventricular systolic pressure, 23 mmHg. Left Atrium The left atrial cavity size is mildly increased. Right Atrium The right atrium is normal by two-dimensional imaging, color flow and Doppler imaging with no structural abnormalities, no thrombus formation present. Atrial Septum The interatrial septum appears normal with no evidence of a shunt. Aorta The aorta is normal by two-dimensional, color flow and Doppler interrogation. Mitral Valve The mitral valve is normal by two-dimensional, color flow and Doppler interrogation. Mild mitral regurgitation. Aortic Valve Aortic valve sclerosis with no evidence of stenosis. Patient has a gradient of 26 mmHg across the aortic valve and left ventricular outflow tract suggestive of hypertrophic obstructive cardiomyopathy Tricuspid Valve The tricuspid valve is normal by two-dimensional, color flow and Doppler interrogation. There is mild tricuspid valve regurgitation. Pulmonic Valve The pulmonic valve is not well visualized. There is no significant pulmonic valve regurgitation. Vessels The pulmonary artery appears normal. The inferior vena cava pulmonary and hepatic veins appear normal. Pericardium There is a trace of pericardial effusion. 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 Aortic valve is tricuspid and appears to be opening normally with normal cusp separation. Mitral valve leaflets show thickening show evidence of mild mitral regurgitation no evidence of systolic anterior motion. Normal right atrium right ventricle. Mildly dilated left atrium. Mild tricuspid regurgitation normal PA pressure. Desiree Mart MD . Elsa Pichardo (Electronically Signed) Final Date: 07 June 2025 17:59
[2025-06-06 18:11] LABS: Cardiac Risk Estimate 3.5 RATIO (4.0-6.7); Cholesterol 125 mg/dL (132-200); HDL Cholesterol 36 mg/dL (40-60); LDL Cholesterol,Calculated 54 mg/dL (0-130); Triglycerides 177 mg/dL (30-150)
[2025-06-06] MEDS: TAMSULOSIN HCL 0.4 MG CAPSULE PO (21:23)
--- NOTE | 2025-06-06 21:44 | PD.IMPROG ---
Documentation for date of: 06/06/25 Subjective Subjective Interval history: Patient evaluated Start the patient clear liquid diet after chest x-ray showed no pneumomediastinum patient Exam Vital Signs Temp Pulse Resp BP Pulse Ox O2 Del Method O2 Flow Rate 97.4 F 68 19 137/77 H 95 Room Air 3 06/06/25 20:00 06/06/25 20:00 06/06/25 20:00 06/06/25 20:00 06/06/25 20:00 06/06/25 20:00 06/05/25 21:45 Objective Labs 06/06/25 05:17 06/06/25 05:17 Labs: Laboratory Results - last 24 hr 06/06/25 06/06/25 05:17 16:45 WBC 7.0 RBC 5.23 Hgb 14.3 Hct 45.4 MCV 87 MCH 27.3 MCHC 31.5 RDW Std Deviation 46.4 H Plt Count 202 D Neut % (Auto) 69 Lymph % (Auto) 18 [place] % (Auto) 11 Eos % (Auto) 2 Baso % (Auto) 1 Neut # (Auto) 4.8 Lymph # (Auto) 1.2 [place] # (Auto) 0.8 Eos # (Auto) 0.1 Baso # (Auto) 0.1 Immature Gran # (Auto) 0.02 H Absolute Nucleated RBC 0.00 Immature Gran % 0 Nucleated RBC % 0 Sodium 143 Potassium 3.9 Chloride 105 Carbon Dioxide 27.6 Anion Gap 10 BUN 8 L Creatinine 1.0 Estim Creat Clear Calc 76.7 eGFR > 60 BUN/Creatinine Ratio 8 L Glucose 84 Calculated Osmolality 282 Calcium 9.4 Corrected Calcium 9.4 Total Bilirubin 0.6 AST 15 ALT 11 Alkaline Phosphatase 74 Troponin I < 0.020 Total Protein 6.4 Albumin 4.2 Globulin 2.2 L Albumin/Globulin Ratio 1.9 Triglycerides 177 H Cholesterol 125 L LDL Cholesterol, Calc 54 HDL Cholesterol 36 L Cholesterol/HDL Ratio 3.5 L Impressions Impression: Status post removal of a foreign body endoscopically which is a large piece of meat clear liquid diet today advance as tolerated Assessment & Plan A&P Narrative Foreign body obstruction esophagus Plan Consent obtained for fiberoptic esophagogastroduodenoscopy with possible therapeutic intervention for removal of the esophageal foreign body under intravenous moderate sedation Thank you very much for the opportunity to participate in the care of this patient Time Spent With Patient Time: Total time spent is greater than 50% in coordination of care (as documented) at patient's floor/unit and/or counseling patient:
[2025-06-07] VITALS (7 sets, daily range): BP systolic 95–141; BP diastolic 66–82; PULSE 66–85; RESP 12–20; TEMP 36.2–36.4; O2SAT 96–98
[2025-06-07] MEDS: PIPER/TAZO 3.375 GM PREMIX 3.375 GM/50 ML BAG IV (05:23)
[2025-06-07 05:33] LABS: Basophils # (Auto) 0.1 Thou/mm3 (0.0-0.2); Basophils % (Auto) 1 % (0-2.5); Eosinophils # (Auto) 0.2 Thou/mm3 (0.0-0.5); Eosinophils % (Auto) 3 % (0-10); Hematocrit 44.0 % (41.0-53.0); Hemoglobin 14.1 g/dL (13.5-16.0); Immature Granulocytes Auto 0.03 Thou/mm3 (0.00-0.00); Lymphocytes # (Auto) 1.1 Thou/mm3 (1.0-4.8); Lymphocytes % (Auto) 24 % (10-50); Mean Corpuscular HGB Conc 32.0 g/dl (31.0-37.0); Mean Corpuscular Hemoglobin 27.9 pg (25.0-35.0); Mean Corpuscular Volume 87 fL (80-100); Monocytes # (Auto) 0.5 Thou/mm3 (0.0-0.8); Monocytes % (Auto) 11 % (0-12); Neutrophils # (Auto) 2.7 Thou/mm3 (1.8-7.7); Neutrophils % (Auto) 60 % (37-80); Nucleated Red Blood Cell # 0.00 Thou/mm3 (0.00-0.00); Nucleated Red Blood Cell % 0 /100 WBC (0); Platelet Count 184 Thou/mm3 (140-440); RDW Standard Deviation 46.6 fL (35.1-43.9); Red Blood Count 5.05 Miln/mm3 (4.50-5.90); White Blood Count 4.6 Thou/mm3 (3.8-10.6)
[2025-06-07 06:17] LABS: Alanine Aminotransferase 7 U/L (10-49); Albumin, Serum 3.9 gm/dL (3.4-4.8); Albumin/Globulin Ratio 1.8 (1.2-2.2); Alkaline Phosphatase 65 U/L (46-116); Anion Gap 11 (7-16); Aspartate Amino Transferase 14 U/L (0-34); BUN/Creatinine Ratio 7 Ratio (12-20); Bilirubin,Total 0.7 mg/dL (0.3-1.2); Blood Urea Nitrogen 6 mg/dL (9-23); Calcium 9.2 mg/dL (8.3-10.6); Calcium (Corrected) 9.3 mg/dL (8.5-10.1); Carbon Dioxide 27.5 mMol/L (20.0-31.0); Chloride 104 mMol/L (98-107); Creatinine (Component) 0.9 mg/dL (0.6-1.3); Estimated Creatinine Clearance 85.5 mL/min (>60); Globulin 2.2 gm/dL (2.3-3.5); Glucose 88 mg/dL (74-106); Osmolality,Calculated 279 (275-295); Potassium 3.9 mMol/L (3.4-5.1); Sodium 142 mMol/L (136-145); Total Protein 6.1 gm/dL (5.7-8.2); eGFR > 60 See Note
[2025-06-07] MEDS: CLOPIDOGREL BISULFATE 75 MG TABLET PO (09:25)
[2025-06-07] MEDS: HEPARIN SOD INJ 5000 UNIT/ML VIAL SC (09:26)
[2025-06-07 10:16] LABS: Troponin I < 0.020 ng/mL (0.0-0.045)
--- NOTE | 2025-06-07 14:09 | ESDS_ITS ---
<Statement entered by Filippo Michael MD - 06/07/25 16:21> 69-year-old male with past medical history of CAD and valvular heart disease status post CABG, hypertension, esophageal stricture and ulceration, BPH, skin cancer presented to the ED on 06/05 for worsening dysphagia and foreign object in esophagus. Gastroenterology was consulted prior to admission call and agreed to complete endoscopy. Patient was admitted then on 06/05 endoscopy was completed with removal of foreign body (chicken). Patient also during admission reported some chest tightness as a result troponin, BNP and EKG were ordered. Lab findings were negative but EKG showed some right ventricular hypertrophy. Echo was ordered and results will be available to the patient on an outpatient basis. Patient denied having any concerning symptoms and understands that he will need to follow-up with cardiology soon after discharge. I have personally seen and examined the patient. I agree with the resident's discharge summary as documented below. Filippo Michael DO PGY-2 Internal Medicine - GME Planned Discharge Date 06/07/25 DS: Providers Provider Date of admission: 06/05/25 17:09 Primary care physician: Kennedy Kelly MD Admitting Provider: Filippo Michael MD Attending Provider on Admission: Mouna Thompson MD Consults: 06/05/25 16:29 Consult to Gastroenterology Stat Comment: Consulting Provider: Hector Haro Attending Provider on DC: Mouna Thompson MD Discharging Provider: Graciela Schwarz DO DS: Diagnosis Problem List Completed Was Problem List Reviewed/Reconciled?: Yes Hospital Course Hospital Course Hospital course: Summary: Patient is a 69-year-old male with past medical history of coronary artery disease s/p CABG, valvular heart disease status post valve replacement, hypertension, esophageal stricture and ulceration, BPH, skin cancer who presented on 06/05 for worsening dysphagia, admitted for dysphagia secondary to foreign object ingestion and retention. ED Course: Vitals: Labs: Imaging: Given in ED: Reason for hospitalization: Upon admission, patient was scheduled for endoscopy for removal of foreign object and possible dilatation by GI specialist Dr. Haro. EGD was required with removal of foreign body, noted to have severe gastritis. CXR postprocedure confirms successful removal of foreign body. Started on IV Zosyn prophylactically for 3 days due to severe inflammation seen on EGD, antibiotics not needed outpatient. Patient tolerated advance diet without any issues. Of note patient developed new ST elevation in leads V1 to V5, however patient was asymptomatic, denied any chest pain or palpitations throughout admission. Reported angina on exertion about a week ago however troponin and BNP were within normal limits. Likely early repolarization changes in setting of complicated cardiac history. Patient was continued on his home medications: Plavix, baby aspirin, carvedilol, rosuvastatin. Recommended outpatient follow- up with wedding transportation driver soon after discharge. Patient was safely discharged home. Discharge Recommendations: -Continue all home medications as prescribed -Follow-up with Dr. Haro (gastroenterology) for dysphagia and gastritis -Please follow-up with your wedding transportation driver - ask them to follow-up on new EKG findings ([facility]) during hospitalization -Please follow-up with your PCP within 1 week - or follow-up at the [address] [place] [address] -If your symptoms worsen or if you develop new chest pain, shortness of breath, difficulty swallowing or bleeding - please come back to the ED immediately. Hospital Diagnoses: #New ST elevations, likely early repolarization #Coronary artery disease status post CABG #Aortic valve disease status post valve replacement #Hypertension #Dysphagia #Foreign body in esophagus #Esophageal stricture and ulceration #BPH #Skin cancer Disposition: Safe discharge home. Patient plan of care was discussed with the resident, Dr. Michael, and attending physician, Dr. Thompson. Graciela Schwarz, PGY-1 Time Spent with Patient Time attestation: Total time spent providing and/or coordinating discharge services: 32 min Time spent: Greater than 30 minutes Exam Vital Signs Temp Pulse Resp BP Pulse Ox O2 Del Method O2 Flow Rate 97.6 F 84 20 130/71 96 Room Air 3 06/07/25 08:00 06/07/25 09:25 06/07/25 08:00 06/07/25 09:25 06/07/25 08:00 06/07/25 08:00 06/05/25 21:45 Narrative Exam Physical Exam General: Awake and in no acute distress. Conversational and non-toxic appearing. HEENT: Normocephalic, atraumatic, mucous membranes moist. Heart: Regular rate and rhythm, normal S1 and S2, no murmurs. Lungs: Clear to auscultation with no wheezing or crackles. Abdomen: Soft, nondistended, nontender, positive bowel sounds. No guarding or rebound tenderness. Neurologic: Alert and oriented x3, no gross neurological deficit, and patient able to move all 4 extremities. Extremities: No edema. Skin: No rash or ecchymoses. Discharge Plan Plan Patient Disposition: HOME (Self Care) Patient condition on transfer: Stable Care Plan Goals: Continue all home medications as prescribed Follow-up with Dr. Haro (gastroenterology) for dysphagia and gastritis Please follow-up with your wedding transportation driver - ask them to follow-up on new EKG findings ([facility]) during hospitalization Please follow-up with your PCP within 1 week - or follow-up at the [facility] [address] [place] [address] If your symptoms worsen or if you develop new chest pain, shortness of breath, difficulty swallowing or bleeding - please come back to the ED immediately. Prescriptions/Referrals Prescriptions/Med Rec: Continued tamsulosin 0.4 mg capsule 0.4 mg PO QHS clopidogrel 75 mg tablet 75 mg PO DAILY carvedilol 6.25 mg tablet 6.25 mg PO BID Patient Comments: TAKE 1 TABLET BY MOUTH TWICE DAILY pantoprazole 40 mg tablet,delayed release (DR/EC) 40 mg PO BID Patient Comments: TAKE 1 TABLET BY MOUTH TWICE DAILY rosuvastatin 40 mg tablet 40 mg PO DAILY Patient Comments: TAKE 1 TABLET BY MOUTH ONCE DAILY Referrals: Kennedy Kelly MD [Primary Care Provider, Family Practice] Hector Haro MD [Physician, Gastroenterology] Patient/Caregiver Discharge Instructions Print Language: Slovak Stand Alone Forms: [place] Award Info., Patient Portal Info Letter Discharge Order Discharge Orders: Discharge (Routine); Ordered 06/07/25 Ordered By: Filippo Michael Quality Discharge Quality Measures VTE prophylaxis Attestestation MD Attestation I attest that I was physically present for the evaluation, physical examination, lab and imaging review of the patient with the residents. I discussed the case with the residents and agree with the findings and plans of care as documented above. At bedside today, patient appears comfortable, denies any new complaints. Denies any chest pain, shortness of breath, palpitation or dizziness. Both troponin studies were negative. Yesterday's EKG was slightly concerning for few ST elevation, discussed with cardiology findings most likely due to IVCD LBBB type. Patient is recommended to continue follow-up with his outpatient c ardiology. Discussed with GI agreed patient safe for discharge. We will discharge patient on his home medications. Mouna Thompson MD
--- NOTE | 2025-06-07 14:33 | PC.SS ---
Rounding Note: Plan is to d/c patient home today.
--- NOTE | 2025-06-07 22:22 | ESPR_ITS ---
Documentation for date of: 06/07/25 Subjective Subjective Interval history: Late entry for the note Patient is swallowing very well Spoke with the patient and we will see him back in follow-up in the office and in the future will need endoscopic dilatation of the GE junction I did not do that on this admission because patient had a lot of ulceration at the site of impacted esophageal foreign body Exam Vital Signs Temp Pulse Resp BP Pulse Ox O2 Del Method O2 Flow Rate 97.2 F 80 20 110/69 98 Room Air 3 06/07/25 16:00 06/07/25 16:00 06/07/25 16:00 06/07/25 16:00 06/07/25 16:00 06/07/25 16:00 06/05/25 21:45 Objective Labs 06/07/25 04:23 06/07/25 04:23 Labs: Laboratory Results - last 24 hr 06/07/25 04:23 WBC 4.6 RBC 5.05 Hgb 14.1 Hct 44.0 MCV 87 MCH 27.9 MCHC 32.0 RDW Std Deviation 46.6 H Plt Count 184 Neut % (Auto) 60 Lymph % (Auto) 24 [place] % (Auto) 11 Eos % (Auto) 3 Baso % (Auto) 1 Neut # (Auto) 2.7 Lymph # (Auto) 1.1 [place] # (Auto) 0.5 Eos # (Auto) 0.2 Baso # (Auto) 0.1 Immature Gran # (Auto) 0.03 H Absolute Nucleated RBC 0.00 Immature Gran % 1 H Nucleated RBC % 0 Sodium 142 Potassium 3.9 Chloride 104 Carbon Dioxide 27.5 Anion Gap 11 BUN 6 L Creatinine 0.9 Estim Creat Clear Calc 85.5 eGFR > 60 BUN/Creatinine Ratio 7 L Glucose 88 Calculated Osmolality 279 Calcium 9.2 Corrected Calcium 9.3 Total Bilirubin 0.7 AST 14 ALT 7 L Alkaline Phosphatase 65 Troponin I < 0.020 Total Protein 6.1 Albumin 3.9 Globulin 2.2 L Albumin/Globulin Ratio 1.8 Impressions Impression: Esophageal foreign body status post endoscopic removal Okay to discharge to be followed by me as an outpatient Assessment & Plan A&P Narrative Foreign body obstruction esophagus Plan Consent obtained for fiberoptic esophagogastroduodenoscopy with possible therapeutic intervention for removal of the esophageal foreign body under intravenous moderate sedation Thank you very much for the opportunity to participate in the care of this patient Time Spent With Patient Time: Total time spent is greater than 50% in coordination of care (as documented) at patient's floor/unit and/or counseling patient:
== END 2025-06-07 16:13 | disposition home or self-care (01) | DRG 395 ==
LOC: SERX 17:08 → SERHOLD 17:13 → S2NX 20:10
PROVIDERS: Nurse Practitioner Family; Specialist; Emergency Provider Emergency Medicine; PCP Family Medicine; Visit Provider Student in an Organized Health Care Education/Training Program
PROC: 0DC58ZZ Extirpation of Matter from Esophagus, Via Natural or Artificial Opening Endoscopic (ICD-10-PCS; CPT 43239; principal; 2025-06-05 21:30)
DX: T18.128A Food in esophagus causing other injury, initial encounter (principal); I10 Essential (primary) hypertension; N40.0 Benign prostatic hyperplasia without lower urinary tract symptoms; F17.210 Nicotine dependence, cigarettes, uncomplicated; W44.9XXA Unspecified foreign body entering into or through a natural orifice, initial encounter; K22.2 Esophageal obstruction; C44.90 Unspecified malignant neoplasm of skin, unspecified; I25.10 Atherosclerotic heart disease of native coronary artery without angina pectoris; I35.9 Nonrheumatic aortic valve disorder, unspecified; R13.10 Dysphagia, unspecified; K29.70 Gastritis, unspecified, without bleeding; Z95.1 Presence of aortocoronary bypass graft; Z95.2 Presence of prosthetic heart valve; Z79.02 Long term (current) use of antithrombotics/antiplatelets; Z79.82 Long term (current) use of aspirin; Z79.899 Other long term (current) drug therapy; Z88.8 Allergy status to other drugs, medicaments and biological substances; W44.F3XA Food entering into or through a natural orifice, initial encounter
CPT/HCPCS: 36415; 71045; 80053; 80061; 83880; 84484; 85025; 93005; 93306; 99284; A4649; J1200; J1644; J2250; J2543; J3010; J7120; A9270

== ENCOUNTER → 2025-07-03 | Outpatient (CLI) | payer MEDICARE, MEDICAID, SELFPAY ==
--- NOTE | 2025-07-03 09:57 | XR_ITS ---
EXAMINATION: Ankle, left 3 views. Technique: Ankle AP, oblique, lateral 3 views Date and time of exam: July 03, 2025, 1025 hours INDICATIONS: Status post ankle surgery November 2024 FINDINGS: Healed fracture distal fibular shaft Suspicious for nonunion of the medial malleolar fracture, CT examination follow-up could be performed if clinically warranted Significant osteoarthritis tibiotalar joint IMPRESSION: Healed fracture distal fibular shaft with satisfactory alignment Suspicious for nonunion of the medial malleolar fracture
== END | disposition home or self-care (01) ==
PROVIDERS: PCP Orthopaedic Surgery; Referring Provider Orthopaedic Surgery; Visit Provider Orthopaedic Surgery
DX: M25.572 Pain in left ankle and joints of left foot (principal); Z98.890 Other specified postprocedural states; Z87.81 Personal history of (healed) traumatic fracture
CPT/HCPCS: 73610